=== PATIENT | male | born 1975 | race Caucasian/White ===

== ENCOUNTER 2017-02-27 11:05 | Emergency (ER) | payer MEDICAID ==
[~2017-02-27] VITALS: Ht 185.4 cm; Wt 100.0 kg
[2017-02-27] MEDS ORDERED: PERTUSS(ACELL),DIPH,TET VAC/PF 0.5 ML VIAL IM ONE (11:30)
[2017-02-27] MEDS ORDERED: HYDROCODONE/ACETAMINOPHEN 5-325 MG TABLET PO ONE (11:30)
[2017-02-27] MEDS ORDERED: LIDOCAINE HCL 1% 10 ML VIAL INJ ONE (11:45)
[2017-02-27] MEDS ORDERED: BACITRACIN 0.9 GM PACKET OINTMENT TP ONE (14:15)
[2017-02-27 14:24] VITALS: BP 136/90
== END 2017-02-27 14:24 | disposition home or self-care (01) ==
LOC: EMS 11:07
DX: S51.811A Laceration without foreign body of right forearm, initial encounter (principal); R03.0 Elevated blood-pressure reading, without diagnosis of hypertension; W45.8XXA Other foreign body or object entering through skin, initial encounter; Y93.89 Activity, other specified; Y92.89 Other specified places as the place of occurrence of the external cause; Y99.8 Other external cause status
CPT/HCPCS: 12002; 73090; 90471; 90715; 96372; 99284; J0690; J3490; 12005

== ENCOUNTER 2017-03-01 08:17 | Emergency (ER) | payer MEDICAID ==
[~2017-03-01] VITALS: Ht 188 cm; Wt 109.1 kg
[2017-03-01 08:37] LABS: GLUCOSE,POINT OF CARE 98 MG/DL (70-110)
[2017-03-01 10:03] VITALS: BP 140/90
[2017-03-01] MEDS ORDERED: HYDROCODONE/ACETAMINOPHEN 5-325 MG TABLET PO ONE (10:30)
== END 2017-03-01 10:50 | disposition home or self-care (01) ==
LOC: EMS 08:18
DX: Z48.00 Encounter for change or removal of nonsurgical wound dressing (principal); M79.89 Other specified soft tissue disorders; Z87.891 Personal history of nicotine dependence
CPT/HCPCS: 82962; 99282